=== PATIENT | male | born 1980 | race Two or more races ===

== ENCOUNTER 2019-10-01 06:02 | Day surgery (SDC) | payer OTHER ==
[2019-10-01] MEDS ORDERED: PERCOCET 5-3251 EACH PO (10:36)
[2019-10-01] MEDS ORDERED: NEURONTIN300 MG PO (10:36)
[2019-10-01] MEDS ORDERED: RECTICARE30 GM TOP (10:37)
== END 2019-10-01 15:40 | disposition home or self-care (01) ==
LOC: CIR.AMB 06:02
DX: K60.3 Anal fistula (principal)